=== PATIENT | female | born 1985 | race African-American/Black ===

== ENCOUNTER 2023-04-10 19:02 | Observation (INO) | payer OTHER ==
[~2023-04-10 19:02] MED LIST: Iopamidol 300 61% 100 ML VIAL FS ONE
[2023-04-10 19:29] LABS: Bilirubin Neg (Negative); Blood, Urine Negative (Negative); Clarity Clear (Clear); Glucose, Urine (Dipstick) Normal (Negative); Ketone, Urine Negative (Negative); Leukocyte Negative (Negative); Nitrite Negative (Negative); Protein, Urine (Dipstick) 15 mg/dl (Neg-Trace)
[2023-04-10 19:30] LABS: Pregnancy Test - Urine (BHCG) Negative (Negative); Pregu Control Background? CLEAR/WHITE (CLR/WHITE); Pregu Control Bar Appear? YES (CONTROL BAR)
[2023-04-10 19:39] LABS: #Monocytes 0.3 10x3/uL (0.0-1.1); #Neutrophils 3.6 10x3/uL (1.5-8.4); %Basophils 0.2 % (0.0-2.0); %Eosinophils 0.3 % (0.0-6.0); %Lymphocytes 35.8 % (18.0-47.0); %Monocytes 4.4 % (0.0-10.0); Hemoglobin 6.9 g/dL (12.0-15.5); Mean Corpuscular HGB CONC 30.3 g/dL (32.0-36.0); Mean Corpuscular Hemoglobin 20.7 pg (27.0-33.0); Mean Corpuscular Volume 68.5 fl (81.6-98.3); Mean Platelet Volume 9.4 fl (7.4-10.4); Platelet Count 289 10x3/uL (150-450); RBC Distribution Width 17.8 % (11.5-14.5); Red Blood Cell (RBC) Count 3.33 10x6/uL (3.90-5.03); White Blood Cell (WBC) Count 6.1 10x3/uL (3.5-10.5)
[2023-04-10] MEDS ORDERED: Dicyclomine 20 MG/2 ML VIAL ONE (19:43)
[2023-04-10 19:55] LABS: ALT (SGPT) Less than 6 U/L (8-55); AST (SGOT) 16 U/L (5-34); Alkaline Phosphatase 99 U/L (40-110); Anion Gap 14 mmol/L (10-20); BUN (Urea Nitrogen) 11 mg/dL (7.0-18.7); Bilirubin, Total 0.3 mg/dL (0.2-1.2); Calc. Creatinine Clearance 0 mL/min (70-130); Carbon Dioxide 21 mmol/L (22-29); Chloride 106 mmol/L (98-107); Estimated GFR 113; Globulin 3.6 g/dL (2.4-3.5); Glucose 85 mg/dL (70-105); Lipase 33 U/L (8-78); Potassium 3.8 mmol/L (3.5-5.1); Protein, Total 7.6 g/dL (6.0-8.3); Sodium 137 mmol/L (136-145)
[2023-04-11 03:15] VITALS: BMI 32.4
[2023-04-11] MEDS ORDERED: Ondansetron PF 4 MG/2 ML Vial IVP PRN (08:41)
[2023-04-11] MEDS ORDERED: Morphine 4 MG/ML VIAL SLOW IVP PRN (08:41)
[2023-04-11] MEDS ORDERED: Morphine 2 MG/ML VIAL SLOW IVP PRN (08:49)
[2023-04-11] MEDS ORDERED: Piperacillin/Tazobactam 3.375 GM in Sodium Chloride 0.9% 100 ML IVPB SCH ×2 (09:00→13:00)
[2023-04-11 10:15] LABS: #Monocytes 0.2 10x3/uL (0.0-1.1); #Neutrophils 3.5 10x3/uL (1.5-8.4); %Basophils 0.2 % (0.0-2.0); %Eosinophils 0.4 % (0.0-6.0); %Monocytes 4.1 % (0.0-10.0); %Neutrophils 72.1 % (40.0-75.0); Mean Corpuscular HGB CONC 30.5 g/dL (32.0-36.0); Mean Corpuscular Hemoglobin 21.3 pg (27.0-33.0); Mean Corpuscular Volume 69.9 fl (81.6-98.3); Mean Platelet Volume 9.4 fl (7.4-10.4); Platelet Count 277 10x3/uL (150-450); RBC Distribution Width 17.7 % (11.5-14.5); Red Blood Cell (RBC) Count 3.75 10x6/uL (3.90-5.03); White Blood Cell (WBC) Count 4.8 10x3/uL (3.5-10.5)
[2023-04-11] MEDS ORDERED: Ketorolac Tromethamine 30 MG/ML VIAL ONE ×2 (11:01→11:35)
[2023-04-11] MEDS ORDERED: Succinylcholine 200 MG/10 ml SYRINGE FS ONE (11:01)
[2023-04-11] MEDS ORDERED: Lidocaine 4% PF 5 ML AMP ONE (11:01)
[2023-04-11] MEDS ORDERED: Atropine Sulfate 0.4 mg/1 ml Vial ONE (11:01)
[2023-04-11] MEDS ORDERED: Albuterol HFA (OR) 200 PUFF INH ONE (11:01)
[2023-04-11] MEDS ORDERED: Lidocaine 2% PF 5 ML VIAL ONE (11:01)
[2023-04-11] MEDS ORDERED: PROPOFOL 20 ML ONE (11:02)
[2023-04-11] MEDS ORDERED: diphenhydrAMINE 50 MG/ML VIAL ONE (11:02)
[2023-04-11] MEDS ORDERED: Lidocaine 1% PF 5 ML VIAL ONE (11:02)
[2023-04-11] MEDS ORDERED: Rocuronium Bromide 10 MG/ML (10ML VIAL) ONE (11:02)
[2023-04-11] MEDS ORDERED: Ondansetron PF 4 MG/2 ML Vial ONE (11:02)
[2023-04-11] MEDS ORDERED: Glycopyrrolate 0.2 MG/ML 5 ML SYRINGE ONE ×2 (11:02→11:24)
[2023-04-11] MEDS ORDERED: Dexamethasone 20 MG/5 ML VIAL ONE (11:02)
[2023-04-11 11:05] LABS: Hypochromia SLIGHT = 6-15 cells (100X) (0-5/hpf); Microcytosis SLIGHT = 6-15 cells (100X) (0-5/hpf); Platelet Morphology Comment Appears Adequate
[2023-04-11] MEDS ORDERED: Fentanyl 100 MCG/2 ML VIAL ONE (11:12)
[2023-04-11] MEDS ORDERED: Bupivacaine HCl 0.5%/Epinephrine 1:200,000/PF 30 ml Vial ONE (11:22)
[2023-04-11] MEDS ORDERED: ePHEDrine Sulfate 50 MG/10 ML VIAL ONE (11:29)
[2023-04-11] MEDS ORDERED: Acetaminophen 325 MG TAB PO PRN (12:39)
[2023-04-11] MEDS ORDERED: HYDROcodone/Acetaminophen 5/325 mg Tablet PO PRN ×2 (12:39)
[2023-04-11] MEDS ORDERED: diphenhydrAMINE 50 MG/ML VIAL IVP PRN (12:39)
[2023-04-11 17:26] VITALS: BP 132/72; TEMP 98
== END 2023-04-11 11:47 | disposition home or self-care (01) ==
LOC: CSHERS 19:02 → CSHTELE 21:43
PROVIDERS: ADMIT Surgery; ATTEND Surgery
PROC: 0DTJ4ZZ Resection of Appendix, Percutaneous Endoscopic Approach (ICD-10-PCS; principal; 2023-04-10)
DX: E66.9 Obesity, unspecified (principal); D64.9 Anemia, unspecified; K35.80 Unspecified acute appendicitis; Z68.32 Body mass index [BMI] 32.0-32.9, adult; Z98.84 Bariatric surgery status
CPT/HCPCS: 36415; 36430; 74177; 80053; 81003; 81025; 83690; 85025; 86850; 86870; 86900; 86901; 86905; 86922; 88304; 96365; 96372; 96375; A4649; C1776; G0378; J0461; J1100; J1200; J1885; J2001; J2405; J2543; J2704; J3010; J3411; J3490; P9016; Q9967

== ENCOUNTER 2023-09-11 13:05 | Emergency (ER) | payer OTHER, SELFPAY ==
[2023-09-11] MEDS ORDERED: Labetalol HCl 100 MG/20 ML VIAL ONE (13:46)
[2023-09-11 14:16] LABS: #Monocytes 0.4 10x3/uL (0.0-1.1); #Neutrophils 5.4 10x3/uL (1.5-8.4); %Basophils 0.1 % (0.0-2.0); %Lymphocytes 19.4 % (18.0-47.0); %Monocytes 5.4 % (0.0-10.0); %Neutrophils 74.8 % (40.0-75.0); Hematocrit 29.6 % (34.9-44.5); Hemoglobin 9.6 g/dL (12.0-15.5); Mean Corpuscular HGB CONC 32.4 g/dL (32.0-36.0); Mean Corpuscular Hemoglobin 23.3 pg (27.0-33.0); Mean Corpuscular Volume 71.8 fl (81.6-98.3); Mean Platelet Volume 9.9 fl (7.4-10.4); Platelet Count 328 10x3/uL (150-450); RBC Distribution Width 15.9 % (11.5-14.5); Red Blood Cell (RBC) Count 4.12 10x6/uL (3.90-5.03); White Blood Cell (WBC) Count 7.2 10x3/uL (3.5-10.5)
[2023-09-11 14:26] LABS: ALT (SGPT) Less than 7 U/L (8-55); AST (SGOT) 18 U/L (5-34); Alkaline Phosphatase 112 U/L (40-110); Anion Gap 13 mmol/L (10-20); BUN (Urea Nitrogen) 6 mg/dL (7.0-18.7); Bilirubin, Total 0.3 mg/dL (0.2-1.2); Calc. Creatinine Clearance 0 mL/min (70-130); Calcium 8.3 mg/dL (7.8-10.44); Carbon Dioxide 21 mmol/L (22-29); Chloride 105 mmol/L (98-107); Estimated GFR 106; Globulin 3.9 g/dL (2.4-3.5); Glucose 111 mg/dL (70-105); Protein, Total 7.9 g/dL (6.0-8.3); Sodium 136 mmol/L (136-145)
[2023-09-11 14:32] LABS: Troponin I 0.013 ng/mL (< 0.028)
[2023-09-11 15:08] LABS: Hypochromia SLIGHT = 6-15 cells (100X) (0-5/hpf); Microcytosis SLIGHT = 6-15 cells (100X) (0-5/hpf); Platelet Adequacy Comment Appears Adequate
== END 2023-09-11 15:34 | disposition home or self-care (01) ==
LOC: CSHERS 13:05
DX: I10 Essential (primary) hypertension (principal)
CPT/HCPCS: 80053; 84484; 85025; 93005; 96374

== ENCOUNTER 2023-10-30 14:30 | Emergency (ER) | payer OTHER, SELFPAY | END 2023-10-30 15:59 | disposition home or self-care (01) | LOC: CSHERS 14:30 | DX: M77.31 Calcaneal spur, right foot (principal); I10 Essential (primary) hypertension ==